=== PATIENT | male | born 1990 | race African-American/Black ===

== ENCOUNTER 2017-03-28 10:32 | Emergency (ER) | payer SELFPAY ==
[2017-03-28] MEDS ORDERED: HYDROcodone/Acetaminophen 5/325 mg Tablet ONE (10:50)
[2017-03-28] MEDS ORDERED: AMOXicillin 250 MG CAP ONE (10:50)
== END 2017-03-28 10:58 | disposition home or self-care (01) ==
LOC: BURERS 10:32
DX: K03.81 Cracked tooth (principal); K02.9 Dental caries, unspecified
CPT/HCPCS: 99282